=== PATIENT | male | born 1955 | race Caucasian/White ===

== ENCOUNTER 2016-10-09 11:06 | Emergency (ER) | payer OTHER ==
[2016-10-09] MEDS ORDERED: Ondansetron 2 mg/mL 2 mL Inj ONE (11:10)
[2016-10-09 11:18] VITALS: BP 135/79; PULSE 78; RESP 16; O2SAT 99
--- NOTE | 2016-10-09 11:30 | ED.REPORT ---
HPI-NVD Date of Service Oct 09, 2016 ED Provider: Michele Barr MD This is a 60 year old male presenting to the emergency department due to sudden onset nausea and vomiting that began two hours ago. 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 He then developed a room-spinning, vertiginous sensation. This resolved and was followed by one episode of diarrhea. Pt continues to have persistent nausea and vomiting. Nausea was at 9/ 10 and is now rated at 6/10. He denies chest pain, abdominal pain, headache, numbness or weakness in extremities, or shortness of breath at this time. Nursing Notes Stated Complaint: NAUSEA/ VOMITING Chief Complaint: Male Abdominal Pain Nursing Notes Reviewed: Yes ([facility] not reconciled) Allergies: Coded Allergies: No Known Allergies (Unverified , 10/09/16) Scheduled PRN Ondansetron ODT (Ondansetron ODT) 8 Mg Tab.rapdis 8 MG PO Q4H PRN PRN For Nausea Prochlorperazine Maleate (Prochlorperazine) 10 Mg Tablet 10 MG PO Q6H PRN PRN For Nausea/Vomiting General Time Seen by MD: 11:28 Chief Complaint Vomiting Hx Obtained From: Patient Arrived By: Walk-in Onset Occurred: Just prior to arrival Symptom Duration: Since onset Severity: Current: No pain currently Pertinent Negative: Pt denies other symptoms Recent Healthcare: No recent doctor visit, No recent hospitalization Similar Sx Previous: No Past Medical History Past Medical History Denies Past Surgical History Denies Ambulatory Status Independent Review of Systems Constitutional: Denies: Chills, Fever GI: Reports: Nausea, Vomiting, Denies: Abdominal pain Skin: Reports Diaphoresis Neurologic: Reports: Dizziness, Spinning sensation Complete sys rev & neg: except as marked. Cardiovascular: Denies: Chest pain Musculoskeletal: Denies: Back pain, Extremity pain, Extremity swelling Physical Exam Initial Vital Signs Vital Signs (First) Date Time Temp Pulse Resp B/P Pulse Ox O2 Delivery O2 Flow Rate FiO2 10/09/16 11:18 35.8 78 16 135/79 99 Room Air Initial VS: Reviewed, Vital signs normal Neck: Supple, Non-tender, Full range of motion Respiratory: Breath sounds normal, Clear to auscultation, No respiratory distress Cardiovascular: Regular rate & rhythm, Heart sounds normal, Intact distal pulses Extremities: Vascular intact, Neuro intact, No swelling, No tenderness Skin: Warm, Dry, No cyanosis Psychiatric: Mood/affect normal, Behavior normal, Normal thought content General/Constitutional: Awake, Alert Abdomen: Soft, Non-tender, BS normoactive Neurologic: Oriented X3, Speech NL, No motor deficits, No sensory deficits Head / Eyes: Normocephalic, PERRL, EOMI, No nystagmus, No scleral icterus, Conjunctiva NL Interpretation & Diagnostics Lab Results Interpretation Result Diagram: 10/09/16 1153 10/09/16 1153 Test 10/09/16 11:53 White Blood Count 7.4th/mm3 (3.8-10.1) Red Blood Count 4.51mil/mm3 (4.40-5.80) Hemoglobin 13.9g/dL (13.8-17.2) Hematocrit 40.0% (41.0-50.0) Mean Corpuscular Volume 88.7fL (81-100) Mean Corpuscular Hemoglobin 30.8pg (27.0-35.0) Mean Corpuscular Hemoglobin Concent 34.8% (32.0-37.0) Red Cell Distribution Width 12.3% (12.3-15.4) Platelet Count 228bil/L (150-400) Neutrophils (%) (Auto) 80.0% (40-74) Lymphocytes (%) (Auto) 14.0% (14-46) Monocytes (%) (Auto) 5.1% (4-12) Eosinophils (%) (Auto) 0.7% (0-5) Basophils (%) (Auto) 0.1% (0-3) Sodium Level 140mEq/L (134-144) Potassium Level 4.5mEq/L (3.5-5.2) Chloride Level 103mEq/L (97-108) Carbon Dioxide Level 23mmol/L (18-29) Blood Urea Nitrogen 16mg/dL (8-27) Creatinine 0.85mg/dL (0.76-1.27) Estimat Glomerular Filtration Rate 97mL/min (>59) Glucose Level 130mg/dL (60-99) Calcium Level 9.5mg/dL (8.5-10.1) Magnesium Level 1.9mg/dL (1.6-2.6) Total Bilirubin 0.3mg/dL (0.0-1.2) Aspartate Amino Transf (AST/SGOT) 26U/L (0-50) Alanine Aminotransferase (ALT/SGPT) 23U/L (0-44) Alkaline Phosphatase 86U/L (25-160) Total Protein 6.7g/dL (6.4-8.4) Albumin 4.2g/dL (3.4-5.0) Lipase 22U/L (13-60) Hold Patel Top Tube Received (Received) Re-Eval/Medical Decision Med Decision/Clinical Course This is a 60-year-old male presents with acute onset of severe nausea and vomiting while at work today. 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 He became diaphoretic, and horrible intractable vomiting and nausea. There was a brief severe episode of vertiginous component , although that has resolved and even lying flat present he remains terribly nauseated. He has had no known exposures, no travel history, has no abdominal pain, he had 1 loose stool but no subsequent diarrhea. He reports still being significantly nauseated. He denies having severe vertigo at present. He has no nystagmus. Abdomen is soft and nontender. He received Zofran on arrival, but continue have ongoing nausea so he received prochlorperazine and Benadryl-with resolution of symptoms. His labs are normal. A repeat examination he has no symptoms, an is up walking around on re-eval. He has a soft nontender abdomen. So at this point a definitive or dangerous cause of his nausea and vomiting has not been established, the patient has no findings of an acute surgical abdomen, no markers of a dangerous etiology and history exam. It does not sound like the patient likely had vertigo causing his nausea and vomiting, although that remains in the differential given his use of the brief few seconds of of the vertigo that he had office, and but had protracted period of ongoing nausea but did not resolve given all holding still and not having any symptoms of vertigo. I was enough any indication for additional imaging or testing at this time. Patient's comfort discharged home. I have written a prescription for prochlorperazine and PRN ondansetron has been provided Source of Hx: Old records Re-Evaluation/Progress : Time of Eval: 14:16 Re-Evaluation/Progress Note: Pt feels better, nausea is resolved, discussed plan for discharge, all questions addressed. Differential Diagnosis: Negative: Appendicitis, Boerhaave syndrome, Bowel obstruction, Crohn's disease, Dehydration, Diabetes mellitus, Migraine headache , Counseled Regarding: Diagnosis, Lab results, Need for follow-up, When/why to return to ED Discharge & Departure Impression: Primary Impression: Nausea and vomiting Vomiting type: unspecified Vomiting Intractability: non-intractable Qualified Code: R11.2 - Nausea with vomiting, unspecified Disposition: Home Discharge Condition All VS Reviewed: Yes Condition: Stable Additional Instructions: 1. A definitive or dangerous cause of the nausea and vomiting was not identified. 2. Take it easy. 3. Small frequent sips of fluids, and if tolerating increase fluids-and a tolerating that slowly advance diet as tolerated. 4. If needed take ondansetron 8 mg-that dissolve on tongue up to every 4 hours for nausea. 5. If needed, and when possible take prochlorperazine 10 mg tablet up to every 4-6 hours for nausea. 6. Return if new, worsening, or intractable symptoms. Scribe Attestation Portions of this note were transcribed by Maicol Cunha. I, Dr. Barr personally performed the history, physical exam and medical decision-making; I reviewed and confirmed the accuracy of the information in the transcribed note. Signed by Cadence William, 10/09/2016 at 18:00. Michele Barr MD Oct 09, 2016 11:30 MAICOL CUNHA Oct 09, 2016 11:31
[2016-10-09] MEDS ORDERED: ProchlorPERazine 5 mg/mL 2 mL Inj IVPUSH ONE (11:55)
[2016-10-09 12:09] LABS: BASOPHILS % (AUTO) 0.1 % (0-3); EOSINOPHILS % (AUTO) 0.7 % (0-5); MONOCYTES % (AUTO) 5.1 % (4-12); Mean Corpuscular Hemoglobin 30.8 pg (27.0-35.0); Mean Corpuscular Volume 88.7 fL (81-100); Platelet Count 228 bil/L (150-400)
[2016-10-09 12:49] LABS: Magnesium 1.9 mg/dL (1.6-2.6)
[2016-10-09] MEDS ORDERED: ONDA8TAB10 PO (14:21)
[2016-10-09] MEDS ORDERED: PROC10TA PO (14:21)
[2016-10-09 14:38] VITALS: BP_SYST 135; BP_SYST 136; BP_DIAS 74; BP_DIAS 79; PULSE 78; PULSE 88; RESP 16; O2SAT 99
== END 2016-10-09 14:42 | disposition home or self-care (01) ==
LOC: SED 12:06
DX: R11.2 Nausea with vomiting, unspecified (principal)
CPT/HCPCS: 36415; 80053; 83690; 83735; 85025; 96374; 96375; 99285; J0780; J1200; J2405